=== PATIENT | female | born 1985 | race Caucasian/White ===

== ENCOUNTER → 2020-06-15 09:29 | Outpatient (BNVA) | payer MEDICARE, SELFPAY | PROVIDERS: Family Provider Nurse Practitioner Family; PCP Nurse Practitioner Family; Visit Provider Emergency Medicine | DX: M53.3 Sacrococcygeal disorders, not elsewhere classified (principal); S67.190A Crushing injury of right index finger, initial encounter | CPT/HCPCS: 73130 ==